=== PATIENT | male | born 1955 | race Caucasian/White ===

== ENCOUNTER 2025-01-06 19:28 | Emergency (ER) | payer MEDICARE ==
[2025-01-06 19:52] LABS: BASOPHILS PERCENT AUTO 0.2 % (0.1-1.3); EOSINOPHILS PERCENT AUTO 0.1 % (0.0-5.4); HEMATOCRIT 37.4 % (38.4-49.7); HEMOGLOBIN 12.7 g/dL (12.9-16.9); IMMATURE GRAN ABSOLUTE AUTO 0.04 K/uL (0.00-0.23); IMMATURE GRAN PERCENT AUTO 0.5 % (0.0-0.7); LYMPHOCYTES ABSOLUTE AUTO 0.69 K/uL (0.8-3.3); LYMPHOCYTES PERCENT AUTO 8.1 % (11.4-47.7); MEAN CORPUSCULAR HEMOGLOBIN 30.2 pg (31.6-35.5); MEAN CORPUSCULAR VOLUME 88.8 fL (81.4-99.0); MONOCYTES ABSOLUTE AUTO 0.97 K/uL (0.20-0.90); MONOCYTES PERCENT AUTO 11.3 % (3.3-12.6); NEUTROPHILS ABSOLUTE AUTO 6.83 K/uL (1.0-7.6); NEUTROPHILS PERCENT AUTO 79.8 % (40.0-78.1); PLATELET COUNT,PLT 412 K/uL (130-375); RED BLOOD CELL COUNT 4.21 M/uL (4.14-5.76); WHITE BLOOD CELL COUNT,WBC 8.6 K/uL (3.2-11.0)
[2025-01-06 19:58] LABS: BASOPHILS ABSOLUTE AUTO 0.02 K/uL (0.00-0.10); EOSINOPHILS ABSOLUTE AUTO 0.01 K/uL (0.00-0.40)
[2025-01-06] MEDS: Piperacillin/Tazobactam 4.5 GM in Sodium Chloride 0.9% 100 ML IV ONE ×2 (20:00→20:23)
[2025-01-06] MEDS: Lactated Ringers 1,000 ML IV SCH (20:04)
[2025-01-06 20:11] LABS: A/G RATIO 0.5 (1.2-2.2); ALANINE AMINOTRANSFERASE,ALT 85 U/L (12-78); ALBUMIN 2.5 g/dL (3.4-5.0); ALKALINE PHOSPHATASE 152 U/L (46-116); ASPARTATE AMNIOTRANSFERASE,AST 66 U/L (15-37); BILIRUBIN TOTAL 1.6 mg/dL (0.2-1.0); BLOOD UREA NITROGEN,BUN 47 mg/dL (7-18); CALCIUM 9.2 mg/dL (8.5-10.1); CARBON DIOXIDE,CO2 20 mmol/L (21-32); CHLORIDE,CL 97 mmol/L (100-108); CREATININE 2.1 mg/dL (0.8-1.3); EST CRCL DRUG DOSING (CG) 36.36 mL/min; ESTIMATED GFR 34 mL/min (>60); GLUCOSE RANDOM 147 mg/dL (74-106); POTASSIUM,K 4.2 mmol/L (3.6-5.2); PROTEIN TOTAL,TP 7.6 g/dL (6.4-8.2); SODIUM,NA 135 mmol/L (140-148)
[2025-01-06 20:12] LABS: ANION GAP 22.2 mmol/L (5.0-14.0)
[2025-01-06 20:13] LABS: TROPONIN I HIGH SENSITIVITY 177.7 pg/mL (<=60.3)
[2025-01-06] MEDS: Aspirin 81 MG Tab.Chew PO ONE (20:24)
[2025-01-06 20:28] LABS: BASE EXCESS ARTERIAL -5.3 mm/L; BICARBONATE,ARTERIAL 17.2 mmol/L (22.0-26.0); CARBOXYHEMOGLOBIN 1.4 % (0.0-1.6); METHEMOGLOBIN 0.8 %; O2 SATURATION ARTERIAL 92.7 % (95.0-98.0); OXYHEMOGLOBIN 90.7 %; PCO2 ARTERIAL 26.4 mmHg (35.0-42.0); PO2 ARTERIAL 68.8 mmHg (75.0-100.0); TOTAL HEMOGLOBIN 12.6 g/dL (13.5-18.0)
[2025-01-06] MEDS: Heparin Sodium/D5W 25,000 UNITS/500 ML BAG IV SCH (21:11)
== END 2025-01-06 22:24 ==
LOC: JP.ED 19:28
DX: I21.4 Non-ST elevation (NSTEMI) myocardial infarction (principal); J18.9 Pneumonia, unspecified organism; N17.9 Acute kidney failure, unspecified; R79.1 Abnormal coagulation profile; I11.0 Hypertensive heart disease with heart failure; I50.9 Heart failure, unspecified; E78.00 Pure hypercholesterolemia, unspecified; Z79.899 Other long term (current) drug therapy; Z88.8 Allergy status to other drugs, medicaments and biological substances; Z88.0 Allergy status to penicillin
CPT/HCPCS: 36415; 36600; 71045; 71045-26; 80053; 82803; 83605; 83880; 84484; 85025; 85379; 87040; 93005; 93010; 96361; 96365; 96367; 99285; 99291-25; A9270-GY; J1644; J2543; J7120

== ENCOUNTER 2025-04-16 17:35 | Emergency (ER) | payer MEDICARE, OTHER ==
[2025-04-16 18:21] LABS: PLATELET COUNT,PLT 289 K/uL (130-375); RED BLOOD CELL COUNT 2.58 M/uL (4.14-5.76)
[2025-04-16 18:27] LABS: INR 1.0; WHITE BLOOD CELL COUNT,WBC 41.9 K/uL (3.2-11.0)
[2025-04-16 18:32] LABS: BAND ABSOLUTE MAN 7.54 K/uL; BAND PERCENT MAN 18 % (5-11); LYMPHOCYTES ABSOLUTE MAN 0.42 K/uL (0.8-3.3); LYMPHOCYTES PERCENT MAN 1 % (24-44); METAMYELOCYTE ABSOLUTE MAN 1.26 K/uL; METAMYELOCYTE PERCENT MAN 3 %; NEUTROPHILS ABSOLUTE MAN 32.68 K/uL (1.0-7.6); SEG NEUTROPHILS PERCENT MAN 78 % (36-66)
[2025-04-16 18:35] LABS: A/G RATIO 0.8 (1.2-2.2); ALANINE AMINOTRANSFERASE,ALT 18 U/L (12-78); ASPARTATE AMNIOTRANSFERASE,AST 17 U/L (15-37); BILIRUBIN TOTAL 0.3 mg/dL (0.2-1.0); BLOOD UREA NITROGEN,BUN 17 mg/dL (7-18); CARBON DIOXIDE,CO2 28 mmol/L (21-32); CHLORIDE,CL 101 mmol/L (100-108); CREATININE 0.8 mg/dL (0.8-1.3); EST CRCL DRUG DOSING (CG) 95.43 mL/min; ESTIMATED GFR 97 mL/min (>60); GLUCOSE RANDOM 97 mg/dL (74-106); POTASSIUM,K 3.0 mmol/L (3.6-5.2); PROTEIN TOTAL,TP 6.4 g/dL (6.4-8.2); SODIUM,NA 141 mmol/L (140-148)
[2025-04-16] MEDS: Iopamidol 755 Mg/ML 100 ML Bottle IV SCH (18:39)
[2025-04-16 19:12] LABS: APPEARANCE,URINE CLEAR (CLEAR); GLUCOSE,URINE NEGATIVE (NEGATIVE); OCCULT BLOOD,URINE NEGATIVE (NEGATIVE)
== END 2025-04-16 21:25 ==
LOC: JP.ED 17:35
DX: I69.322 Dysarthria following cerebral infarction (principal); C85.90 Non-Hodgkin lymphoma, unspecified, unspecified site; E87.6 Hypokalemia; E86.0 Dehydration; I10 Essential (primary) hypertension; E78.00 Pure hypercholesterolemia, unspecified; Z88.0 Allergy status to penicillin; Z88.5 Allergy status to narcotic agent; Z79.899 Other long term (current) drug therapy
CPT/HCPCS: 36415; 70450; 70496; 70498; 80053; 81003; 82947; 83605; 84484; 85025; 85610; 93010; 96360; 99285; 99291; A9270; J7030; Q9967